=== PATIENT | female | born 1995 | race Caucasian/White ===

== ENCOUNTER 2016-04-28 17:40 | Emergency (ER) | payer OTHER ==
[~2016-04-28] VITALS: Ht 157.5 cm; Wt 58.3 kg
--- NOTE | 2016-04-28 17:46 | EMERGENCY ROOM VISIT NOTE ---
History Report prepared by Kaila: Rosamaria Medley Under the Supervision of: Dr. Pollo Velazco D.O. First contact with patient: 17:44 Chief Complaint: ALCOHOL OVERDOSE Stated Complaint: ETOH History of Present Illness The patient is a 21 year old female who presents to the Emergency Room to be evaluated for an episode of suspected alcohol intoxication that occurred this afternoon. The patient presented to the emergency department by ambulance. The patient denies any trauma. She denies having any headaches. She did have one episode of emesis prior to arrival. She was found sleeping outside of a building. She was evaluated by the prehospital personnel. She awakened to painful stimuli but was still somewhat obtunded. The patient has no signs of trauma on physical exam. She denies having any chest pain or shortness of breath. She does still complain of some nausea. Source of History: patient Onset: this afternoon Position: other (global ) Quality: other (alcohol intoxication) Timing: other (episode) Associated Symptoms: + nausea, + vomiting, No SOB, No chest pain, No headache Review of Systems See HPI for pertinent positives & negatives. A total of 10 systems reviewed and were otherwise negative. Past Medical & Surgical Medical Problems: (1) Depression Family History No pertinent family history Social History Smoking Status: Current Every Day Smoker Smokeless Tobacco Use: No Alcohol Use: occasionally Drug Use: marijuana Marital Status: single Current/Historical Medications Scheduled Control Pills ( Control Pills), 1 TAB PO DAILY Fluoxetine (Prozac), 60 MG PO DAILY Allergies Coded Allergies: No Known Allergies (Unverified , 04/28/16) Physical Exam Vital Signs Date Time Temp Pulse Resp B/P Pulse Ox O2 Delivery O2 Flow Rate FiO2 04/29/16 02:10 73 20 126/61 98 04/29/16 00:00 77 19 96 04/28/16 23:59 115/55 04/28/16 23:30 80 18 96 04/28/16 23:29 116/58 04/28/16 23:00 81 23 96 04/28/16 22:59 112/50 04/28/16 22:30 81 19 96 04/28/16 22:29 119/66 04/28/16 22:07 74 04/28/16 22:00 78 17 96 04/28/16 21:59 117/65 04/28/16 21:30 75 25 96 04/28/16 21:29 118/64 04/28/16 21:00 78 18 97 04/28/16 20:59 119/63 04/28/16 20:30 76 18 97 04/28/16 20:29 122/67 04/28/16 20:00 74 17 97 04/28/16 19:59 124/67 04/28/16 19:30 76 18 98 04/28/16 19:29 114/77 04/28/16 19:00 64 18 100 04/28/16 18:20 63 18 119/72 96 Room Air 04/28/16 18:03 63 04/28/16 17:49 96 Room Air 04/28/16 17:49 36.6 71 18 119/74 98 Room Air Physical Exam GENERAL: Patient is listless but responds to verbal commands. She does follow commands. EYES: The conjunctivae are clear. The pupils are dilated but reactive to light bilaterally. EARS, NOSE, MOUTH AND THROAT: The nose is without any evidence of any deformity. Mucous membranes are moist tongue is midline NECK: The neck is nontender and supple. RESPIRATORY: Normal respiratory effort is noted there is no evidence of wheezing rhonchi or rales CARDIOVASCULAR: Regular rate and rhythm noted there no murmurs rubs or gallops normal S1 normal S2 GASTROINTESTINAL: The abdomen is soft. Bowel sounds are present in all quadrants. Abdomen is nontender BACK: No midline tenderness or or step-off noted range of motion in flexion extension as well as rotation no signs of muscle spasm noted MUSCULOSKELETAL/EXTREMITIES: There is no evidence of gross deformity full range of motion is noted in the hips and shoulders SKIN: There is no obvious evidence of any rash. There are no petechiae, pallor or cyanosis noted. NEUROLOGIC: Patient is awake to verbal stimuli. She is oriented to person place and situation. She moves all extremities. Medical Decision & Procedures Laboratory Results 04/28/16 18:08 Test 04/28/16 18:08 04/28/16 18:19 Anion Gap 11.0 mmol/L (3-11) Est Creatinine Clear Calc Drug Dose 94.7 ml/min Estimated GFR () 133.0 Estimated GFR (Non- 114.7 BUN/Creatinine Ratio 8.2 (10-20) Calcium Level 8.9 mg/dl (8.5-10.1) Human Chorionic Gonadotropin, Qual NEG (NEG) Ethyl Alcohol mg/dL 230.0 mg/dl (0-3) Bedside Glucose 96 mg/dl (70-90) Laboratory results per my review. ED Course 174: The patient was evaluated in room C12. A complete history and physical examination were performed. 2006: I reevaluated the patient; she is sleeping. 0112: Upon reevaluation, the patient is doing well. I discussed the results and treatment plan with the patient. She verbalized agreement of the treatment plan. The patient was discharged home. Medical Decision Differential diagnosis: Etiologies such as toxicologic, infection, hypoglycemia, electrolyte abnormalities, cardiac sources, intracerebral event, neurologic, as well as others were entertained. The patient is a 21-year-old female who presented to the emergency department for suspected alcohol intoxication. The patient was found have an altered mental status and was felt to be intoxicated with alcohol. Upon arrival to the emergency department the patient was able to answer questions but she was still clinically intoxicated. She denied any trauma. She was reevaluated multiple times. On final reevaluation she was awake and alert. She was no longer clinically intoxicated. She was encouraged to drink plenty clear liquids and avoid any further alcohol intake. She was also encouraged to follow-up with [facility] this week for reevaluation but return to the emergency department immediately if symptoms change worsen or the need arises. Otherwise she was encouraged to refrain from operating heavy any machinery including driving a vehicle for next 24 hours. Impression Primary Impression: Altered mental status Additional Impression: Alcohol intoxication Scribe Attestation The scribe's documentation has been prepared under my direction and personally reviewed by me in its entirety. I confirm that the note above accurately reflects all work, treatment, procedures, and medical decision making performed by me. Departure Information Dispostion Home / Self-Care Forms HOME CARE DOCUMENTATION FORM, IMPORTANT VISIT INFORMATION Patient Instructions Alcohol Intoxication - [facility], [facility]: [employer] Students and Alcohol Related Visits , My [facility] Additional Instructions Follow-up with [facility] this week for reevaluation. Drink plenty of clear liquids including Pedialyte and Gatorade. Avoid any further alcohol use. Do not operate any heavy machinery or drive a vehicle for next 24 hours. Problem Qualifiers Primary Impression: Altered mental status Altered mental status type: unspecified Qualified Codes: R41.82 - Altered mental status, unspecified Additional Impression: Alcohol intoxication Complication of substance-induced condition: uncomplicated Qualified Codes: F10.120 - Alcohol abuse with intoxication, uncomplicated
[2016-04-28 17:49] VITALS: TEMP 36.6; O2SAT 96; Ht 157.5 cm; Wt 58.3 kg
[2016-04-28] MEDS ORDERED: FLUO20CA35 PO (17:58)
[2016-04-28] MEDS ORDERED: BCPILLS PO (17:59)
[2016-04-28 18:47] LABS: BUN/CREATININE RATIO 8.2 (10-20); CALCIUM 8.9 mg/dl (8.5-10.1); CREATININE 0.75 mg/dl (0.60-1.20); POTASSIUM 3.1 mmol/L (3.5-5.1)
[2016-04-28 18:49] LABS: PREG INTERNAL NEGATIVE QC NEG CLEAR BACKGROUND; PREG INTERNAL POSITIVE QC POS CONTROL LINE
[2016-04-29 02:10] VITALS: BP 126/61; PULSE 73; O2SAT 98
== END 2016-04-29 02:11 | disposition home or self-care (01) ==
LOC: EDBD 17:44 → C.EDC 17:44
DX: R41.82 Altered mental status, unspecified (principal); F10.120 Alcohol abuse with intoxication, uncomplicated; F17.200 Nicotine dependence, unspecified, uncomplicated; F32.9 Major depressive disorder, single episode, unspecified